=== PATIENT | female | born 1960 | race Caucasian/White ===

== ENCOUNTER → 2020-03-09 | Outpatient (CLI) | payer OTHER ==
--- NOTE | 2020-03-09 09:43 | RAD ---
PQRS Compliance Statement: One or more of the following individualized dose reduction techniques were utilized for this examination: 1. Automated exposure control 2. Adjustment of the mA and/or kV according to patient size 3. Use of iterative reconstruction technique CT MAXILLOFACIAL WO CONTRAST 03/09/2020 9:00 AM Indication: TMJ COMPARISON: None available. TECHNIQUE: Multiple axial CT images of the maxillofacial structures were obtained without intravenous contrast. Coronal and sagittal reformats are provided. FINDINGS: Osseous orbits are intact. Globes are spherical and contour. Bilateral lens replacement. Extraocular muscles are intact. No intraconal or extraconal mass is identified. Skull base is intact. Nasal bones are intact. Nasal septum is predominantly midline. Paranasal sinuses are well aerated. No acute fracture of the paranasal sinuses is identified. Pterygoid plates are intact. Temporomandibular joints are well aligned. Mastoid air cells are well aerated. Middle ear cavities are well aerated. Visualized nasopharynx and oropharynx are intact. Soft tissues are normal. Maxilla and mandible are intact. Visualized dentition appear normal. IMPRESSION: No acute fracture of the maxillofacial structures. Temporomandibular joints are well aligned. Electronically signed by: Ida Rodriguez MD (03/09/2020 9:40 AM) [id number]
== END | disposition home or self-care (01) ==
LOC: CT 09:02
PROVIDERS: ATTEND Physician Assistant Medical
DX: M26.609 Unspecified temporomandibular joint disorder, unspecified side (principal)
CPT/HCPCS: 70486

== ENCOUNTER → 2021-10-10 | Outpatient (CLI) | payer OTHER ==
--- NOTE | 2021-10-11 11:17 | RAD ---
XR FINGER(S)_LEFT 2+VIEWS_RT History: Reason: FALL A FEW WEEKS AGO, PAIN IN THUMB / Spl. Instructions: / History: Technique: PA view the hand and 2 additional views of the first digit. Comparison: None. Findings: No dislocation. No acute fracture. Mild first carpal metacarpal triscaphe DJD. Impression: 1. No acute osseous abnormality. 2. Mild first carpometacarpal/triscaphe DJD. Electronically signed by: Lj Cavazos DO (10/11/2021 11:14 AM) [id number]
== END ==
LOC: RAD 15:06
PROVIDERS: ATTEND Physician Assistant Medical
DX: M19.042 Primary osteoarthritis, left hand (principal)
CPT/HCPCS: 73140